=== PATIENT | male | born 1995 | race Two or more races ===

== ENCOUNTER 2019-08-17 15:44 | Outpatient (CLI) | payer OTHER | END 2019-08-17 15:48 | disposition home or self-care (01) | LOC: LAB 15:44 | DX: R05 Cough (principal); R06.2 Wheezing; R50.9 Fever, unspecified ==

== ENCOUNTER 2020-02-11 20:24 | Emergency (ER) | payer OTHER ==
[~2020-02-11] VITALS: Ht 172.7 cm; Wt 57.2 kg
== END 2020-02-11 23:32 | disposition home or self-care (01) ==
LOC: ER 20:24
DX: K29.60 Other gastritis without bleeding (principal); Z03.818 Encounter for observation for suspected exposure to other biological agents ruled out; R11.2 Nausea with vomiting, unspecified; R10.13 Epigastric pain